=== PATIENT | female | born 1955 | race Caucasian/White ===

== ENCOUNTER → 2020-04-25 | Outpatient (CLI) | payer OTHER, BC ==
[~2020-04-25] MED LIST: ALLER-EASE180 MG PO; ASA81BEC PO; DAILY VITE1 EACH PO; ELDERBERRY-VIT1 EACH PO; LOSARTAN POTAS100 MG PO; MOVE FREE JOIN1 EACH PO; NORVASC10 MG PO; PEPCID20 MG PO; PROTONIX40 M2 PO; VASCEPA1 GM PO; ZOCOR20 MG PO
== END ==
LOC: LAB 08:35
PROVIDERS: ATTEND Specialist
DX: Z01.818 Encounter for other preprocedural examination (principal); Z20.822 Contact with and (suspected) exposure to COVID-19

== ENCOUNTER → 2020-04-27 | Outpatient (CLI) | payer OTHER, BC ==
[~2020-04-27] VITALS: Ht 160 cm; Wt 78.5 kg
--- NOTE | 2020-04-27 15:01 | P ---
[facility] [place] [address] PROCEDURE REPORT Name: HANNA BARRY Room #: REG DOMINGO Flowers#: [id number] Admission: 04/27/20 Attend Phys: Ye Jaramillo Discharge: Date of : 55 Report #: [id number] THIS REPORT FOR: cc: Bisi Poole MD, Michelle R. MD McElhinney, Christian C. MD ~ DATE OF SERVICE: 04/27/2020 PROCEDURE PERFORMED: Upper endoscopy with biopsies. HISTORY OF PRESENT ILLNESS: The patient is a 65-year-old female with a history of gastroesophageal reflux disease, who takes Protonix in the morning and Pepcid in the evening, which controls her symptoms fairly well. She has a family history of gastric cancer in a twin sister. Plan is for EGD and colonoscopy today. DESCRIPTION OF PROCEDURE: The risks and benefits of the procedure were explained to the patient, those risks including but not limited to bleeding, perforation, the risk of sedation. She understood these risks and gave informed consent. Sedation was given using propofol per anesthesia. Next, using a standard Olympus upper endoscope, the scope was placed in the patient's mouth and advanced under direct vision through the esophagus, stomach and into the second portion of the duodenum. Esophagus was normal throughout. The GE junction was normal. Upon entering the stomach, a small hiatal hernia was noted. There was a diffuse gastritis noted in the gastric antrum. No evidence of ulcerations. Biopsies were obtained to rule out H. pylori. The pylorus was normal and patent. The duodenal bulb, first and second portion were all normal. The scope was then withdrawn and the procedure terminated. The patient tolerated the procedure well. IMPRESSION: 1. Gastritis. 2. Small hiatal hernia. 3. Otherwise, normal upper endoscopy. RECOMMENDATIONS: 1. Await biopsy results. 2. Continue current medical regimen of Protonix and Pepcid. Thank you for allowing me to participate in her care. <ELECTRONICALLY SIGNED> By: Ye Lam MD 04/27/20 1501 1130 1401 Ye Lam MD /nt
--- NOTE | 2020-04-27 15:01 | P ---
[facility] [place] [address] PROCEDURE REPORT Name: HANNA BARRY Room #: REG DOMINGO Flowers#: [id number] Admission: 04/27/20 Attend Phys: Ye Jaramillo Discharge: Date of : 55 Report #: [id number] THIS REPORT FOR: cc: Bisi Poole MD, Michelle R. MD McElhinney, Christian C. MD ~ DATE OF SERVICE: 04/27/2020 PROCEDURE PERFORMED: Colonoscopy with biopsies. HISTORY OF PRESENT ILLNESS: The patient is a 65-year-old female with a history of colon cancer in 1995, status post right hemicolectomy and underwent chemotherapy. She has had multiple colonoscopies since that time. Denies any symptoms at this time. Last colonoscopy was in 2016, inflammatory polyp was removed at that time. DESCRIPTION OF PROCEDURE: The risks and benefits of the procedure were explained to the patient, those risks including but not limited to bleeding, perforation and the risk of sedation. She understood these risks and gave informed consent. Sedation was given using propofol per anesthesia. Next, a digital rectal exam was initially performed, which was normal. Next, using a standard Olympus colonoscope, the scope was placed in the patient's anus and advanced under direct vision to the right colon, at which point, the surgical anastomosis was noted. This was well healed and widely patent. The terminal ileum was intubated and normal. The remaining transverse and descending colon were normal. Multiple diverticula were noted in the sigmoid colon. Also noted was a 3 mm sessile polyp. This was removed with cold forceps. The rectal mucosa was normal. On retroflexion, no abnormalities were noted. The scope was then withdrawn and the procedure terminated. The patient tolerated the procedure well. IMPRESSION: 1. Small sigmoid colon polyp. 2. Sigmoid diverticulosis. 3. Surgical changes noted in the right colon. 4. Otherwise, normal colonoscopy. RECOMMENDATIONS: 1. Await biopsy results. 2. Repeat colonoscopy in [address] [address] PROCEDURE REPORT Name: HANNA BARRY Room #: REG DOMINGO Flowers#: [id number] Admission: 04/27/20 Attend Phys: Ye Jaramillo Discharge: Date of : 55 Report #: [id number] Thank you for allowing me to participate in her care. <ELECTRONICALLY SIGNED> By: Ye Lam MD 04/27/20 1501 1156 1406 Ye Lam MD /nt
--- NOTE | 2020-05-02 15:07 | PATH ---
[facility] [place] [address] [place] [address] PATHOLOGY RPT PROCEDURE Name: HANNA SARAH EULALIA Room #: REG DOMINGO Marina.#: [id number] Admission: 04/27/20 Date of : 55 Discharge: Report #: [id number] Path Case #: [id number] [facility] Accession Number: [id number] . 01 Material submitted: . PART A: gastrointestinal site - BIOPSY GASTRITIS PART B: gastrointestinal site - BIOPSY GASTRIC POLYPS PART C: sigmoid colon - BIOPSY SIGMOID COLON POLYP . 01 Clinical history: . HISTORY OF COLON CANCER DIVERTICULOSIS, GASTRIC POLYPS, SIGMOID COLON POLYP DTS/EGD AND COLONOSCOPY/HX OF COLON CA . 02 Diagnosis: A. Gastric mucosa, gastritis to rule out H. pylori, endoscopic biopsy: - Moderate reactive gastropathy with focal intestinal metaplasia. - One fragment showing abundant foamy macrophages within lamina propria compatible with xanthoma. - Negative for atrophy or dysplasia. - Negative for Helicobacter pylori (properly controlled immunohistochemical stain performed). . B. Polyp, gastric polyps, endoscopic biopsy: - Fundic gland polyps, multiple. - Negative for dysplasia. . C. Polyp, sigmoid colon polyp, endoscopic biopsy: - Tubular adenoma admixed with hyperplastic features. - Negative for high-grade dysplasia. . 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 02 Electronically signed: . Carla Boo MD, Pathologist NPI- [id number] . 01 Gross description: . A. Received in formalin labeled "Hanna Sarah, biopsy gastritis rule out H. pylori" are multiple fragments of lima-brown soft tissue measuring in aggregate 1.1 x 0.4 x 0.2 cm. The specimen is submitted entirely in A1. . B. Received in formalin labeled "Hanna Sarah biopsy gastric polyps" are multiple fragments of lima-brown soft tissue measuring in aggregate 1.2 x 0.4 x 0.3 cm. The specimen is submitted entirely in B1. . [address] [address] PATHOLOGY RPT PROCEDURE Name: HANNA SARAH AMBROSE Room #: REG [facility] Lionel#: [id number] Admission: 04/27/20 Date of : 55 Discharge: Report #: [id number] Path Case #: [id number] C. Received in formalin labeled "Hanna Sarah biopsy sigmoid colon polyp" is a fragment of lima-brown soft tissue measuring 0.6 x 0.3 x 0.3 cm. The specimen is submitted entirely in C1.([facility]; 04/29/2020) . GZA/GZA 05/02/2020 1219 Local . 02 Pathologist provided ICD-10: K31.9, K31.7, D12.5 . 02 CPT . 042944, 311062, 023259, K18486 Specimen Comment: A courtesy copy of this report has been sent to [phone], [phone] Specimen Comment: [phone] Specimen Comment: Report sent to / DR LAFLEUR Performed at: [address], [place] [id number] MD Joel Starks MD Phone: [phone] Performed at: [address] [id number] MD Carla Boo MD Phone: [phone]
== END | disposition home or self-care (01) ==
LOC: GI 09:20
PROVIDERS: ATTEND Specialist
DX: Z12.11 Encounter for screening for malignant neoplasm of colon (principal); Z86.010 Personal history of colon polyps; Z80.0 Family history of malignant neoplasm of digestive organs; D12.5 Benign neoplasm of sigmoid colon; K57.30 Diverticulosis of large intestine without perforation or abscess without bleeding; K31.9 Disease of stomach and duodenum, unspecified; K31.7 Polyp of stomach and duodenum; I10 Essential (primary) hypertension; E78.00 Pure hypercholesterolemia, unspecified; K29.70 Gastritis, unspecified, without bleeding; K44.9 Diaphragmatic hernia without obstruction or gangrene; K21.9 Gastro-esophageal reflux disease without esophagitis; Z98.890 Other specified postprocedural states; Z79.899 Other long term (current) drug therapy; Z88.8 Allergy status to other drugs, medicaments and biological substances; Z87.891 Personal history of nicotine dependence; Z85.038 Personal history of other malignant neoplasm of large intestine; Z85.828 Personal history of other malignant neoplasm of skin; Z90.49 Acquired absence of other specified parts of digestive tract
CPT/HCPCS: 62110; 62900

== ENCOUNTER → 2020-11-07 | Outpatient (CLI) | payer OTHER, BC | LOC: SJCVC 11:45 | PROVIDERS: ATTEND Internal Medicine Cardiovascular Disease | DX: R07.9 Chest pain, unspecified (principal); R06.02 Shortness of breath; E78.00 Pure hypercholesterolemia, unspecified; E78.1 Pure hyperglyceridemia; I10 Essential (primary) hypertension; K21.9 Gastro-esophageal reflux disease without esophagitis; Z82.49 Family history of ischemic heart disease and other diseases of the circulatory system; Z79.82 Long term (current) use of aspirin; Z79.899 Other long term (current) drug therapy; Z87.891 Personal history of nicotine dependence; Z88.1 Allergy status to other antibiotic agents ==

== ENCOUNTER → 2020-11-07 | Outpatient (CLI) | payer OTHER | LOC: CAT 12:56 | PROVIDERS: ATTEND Internal Medicine Cardiovascular Disease | DX: Z13.6 Encounter for screening for cardiovascular disorders (principal); E78.00 Pure hypercholesterolemia, unspecified; I25.10 Atherosclerotic heart disease of native coronary artery without angina pectoris ==

== ENCOUNTER → 2020-11-22 | Outpatient (CLI) | payer OTHER, BC | LOC: SJCVCIMAG 11-16 08:42 | PROVIDERS: ATTEND Internal Medicine Cardiovascular Disease | DX: R06.00 Dyspnea, unspecified (principal); R07.9 Chest pain, unspecified ==